=== PATIENT | female | born 1975 | race Two or more races ===

== ENCOUNTER 2017-12-26 10:47 | Outpatient (CLI) | payer OTHER | END 2017-12-26 10:55 | disposition home or self-care (01) | LOC: MAMO-SONO 10:47 | DX: N63.11 Unspecified lump in the right breast, upper outer quadrant (principal); N63.12 Unspecified lump in the right breast, upper inner quadrant ==

== ENCOUNTER 2018-08-14 10:54 | Outpatient (CLI) | payer OTHER | END 2018-08-14 11:06 | disposition home or self-care (01) | LOC: SONOGRAMA 10:54 | DX: E03.8 Other specified hypothyroidism (principal); E04.8 Other specified nontoxic goiter ==

== ENCOUNTER 2019-02-09 08:16 | Outpatient (CLI) | payer OTHER | END 2019-02-09 08:22 | disposition home or self-care (01) | LOC: RAD 08:16 | DX: M43.07 Spondylolysis, lumbosacral region (principal); M50.322 Other cervical disc degeneration at C5-C6 level; M54.16 Radiculopathy, lumbar region; M43.04 Spondylolysis, thoracic region ==

== ENCOUNTER → 2019-04-27 | Outpatient (CLI) | payer OTHER | END | disposition home or self-care (01) | LOC: MAMO-SONO 08:45 | DX: N60.11 Diffuse cystic mastopathy of right breast (principal); N60.12 Diffuse cystic mastopathy of left breast; N63.10 Unspecified lump in the right breast, unspecified quadrant; N63.20 Unspecified lump in the left breast, unspecified quadrant ==

== ENCOUNTER → 2019-11-05 09:38 | Outpatient (CLI) | payer OTHER | END | disposition home or self-care (01) | LOC: LAB 09:38 | PROVIDERS: ATTEND Plastic Surgery | DX: Z20.828 Contact with and (suspected) exposure to other viral communicable diseases (principal); Z11.59 Encounter for screening for other viral diseases; Z03.818 Encounter for observation for suspected exposure to other biological agents ruled out ==

== ENCOUNTER → 2019-12-21 10:00 | Outpatient (CLI) | payer OTHER | END | disposition home or self-care (01) | LOC: PPH VACUNA 10:00 | DX: Z23 Encounter for immunization (principal) ==

== ENCOUNTER 2020-06-16 12:46 | Outpatient (CLI) | payer OTHER | END 2020-06-16 12:49 | disposition home or self-care (01) | LOC: MAMO-SONO 12:46 | PROVIDERS: ATTEND Plastic Surgery | DX: N62 Hypertrophy of breast (principal); N60.11 Diffuse cystic mastopathy of right breast; N60.12 Diffuse cystic mastopathy of left breast ==

== ENCOUNTER 2020-11-03 12:53 | Outpatient (CLI) | payer OTHER | END 2020-11-03 12:59 | disposition home or self-care (01) | LOC: SONOGRAMA 12:53 | PROVIDERS: ATTEND Obstetrics & Gynecology | DX: E34.8 Other specified endocrine disorders (principal); N39.0 Urinary tract infection, site not specified ==

== ENCOUNTER 2020-12-25 08:00 | Outpatient (CLI) | payer OTHER | END 2020-12-25 08:30 | disposition home or self-care (01) | LOC: PPH VACUNA 08:00 | PROVIDERS: ATTEND Emergency Medicine Pediatric Emergency Medicine | DX: Z23 Encounter for immunization (principal) ==

== ENCOUNTER 2021-05-14 13:32 | Outpatient (CLI) | payer OTHER | END 2021-05-14 14:00 | disposition home or self-care (01) | LOC: RAD 13:32 | PROVIDERS: ATTEND Obstetrics & Gynecology | DX: R93.0 Abnormal findings on diagnostic imaging of skull and head, not elsewhere classified (principal); R93.7 Abnormal findings on diagnostic imaging of other parts of musculoskeletal system ==

== ENCOUNTER → 2021-09-07 | Outpatient (CLI) | payer OTHER | END | disposition home or self-care (01) | LOC: MAMO-SONO 10:09 | PROVIDERS: ATTEND Obstetrics & Gynecology | DX: N60.11 Diffuse cystic mastopathy of right breast (principal); N60.12 Diffuse cystic mastopathy of left breast; N63.11 Unspecified lump in the right breast, upper outer quadrant; N63.21 Unspecified lump in the left breast, upper outer quadrant ==

== ENCOUNTER 2021-11-29 12:51 | Outpatient (CLI) | payer OTHER | END 2021-11-29 12:52 | disposition home or self-care (01) | LOC: SONOGRAMA 12:51 | PROVIDERS: ATTEND Internal Medicine | DX: E04.2 Nontoxic multinodular goiter (principal) ==

== ENCOUNTER 2022-12-13 13:44 | Outpatient (CLI) | payer OTHER | END 2022-12-13 13:55 | disposition home or self-care (01) | LOC: MAMO-SONO 13:44 | PROVIDERS: ATTEND Anesthesiology | DX: Z12.31 Encounter for screening mammogram for malignant neoplasm of breast (principal); N60.11 Diffuse cystic mastopathy of right breast; N60.12 Diffuse cystic mastopathy of left breast ==

== ENCOUNTER 2023-06-06 09:48 | Outpatient (CLI) | payer OTHER | END 2023-06-06 09:55 | disposition home or self-care (01) | LOC: RAD 09:48 | PROVIDERS: ATTEND Plastic Surgery | DX: M25.552 Pain in left hip (principal) ==

== ENCOUNTER 2024-05-21 13:37 | Outpatient (CLI) | payer OTHER | END 2024-05-21 13:40 | disposition home or self-care (01) | LOC: MAMO-SONO 13:37 | PROVIDERS: ATTEND Plastic Surgery | DX: N60.11 Diffuse cystic mastopathy of right breast (principal); N60.12 Diffuse cystic mastopathy of left breast; N63.10 Unspecified lump in the right breast, unspecified quadrant; N63.20 Unspecified lump in the left breast, unspecified quadrant ==

== ENCOUNTER 2024-12-03 08:27 | Outpatient (CLI) | payer OTHER | END 2024-12-03 08:37 | disposition home or self-care (01) | LOC: RAD 08:27 | PROVIDERS: ATTEND Orthopaedic Surgery Orthopaedic Surgery of the Spine | DX: M43.26 Fusion of spine, lumbar region (principal) ==

== ENCOUNTER 2025-01-24 14:13 | Outpatient (CLI) | payer OTHER | END 2025-01-24 14:23 | disposition home or self-care (01) | LOC: TOM 14:13 | PROVIDERS: ATTEND Obstetrics & Gynecology | DX: R10.84 Generalized abdominal pain (principal) ==